=== PATIENT | female | born 1995 | race American Indian/Alaskan Native ===

== ENCOUNTER 2016-11-25 03:22 | Inpatient (IN) | payer MEDICAID, OTHER ==
[2016-11-25] MEDS ORDERED: Ondansetron 4 MG/2 ML SDV IV PRN (03:38)
[2016-11-25] MEDS ORDERED: Methylergonovine 0.2 MG/1 ML Amp IM PRN (03:38)
[2016-11-25] MEDS ORDERED: ceFAZolin 2 GM in Premix Bag 1 BAG IV ONE (03:38)
[2016-11-25] MEDS ORDERED: Citric Acid/Sodium Citrate Solution 30 ML Cup PO ONE (03:38)
[2016-11-25] MEDS ORDERED: Naloxone 2 MG/2 ML Syringe IVPUSH PRN (03:38)
[2016-11-25] MEDS ORDERED: Ibuprofen 800 MG Tab PO PRN (03:38)
[2016-11-25] MEDS ORDERED: Acetaminophen/oxyCODONE 325-5 MG Tab PO PRN (03:38)
[2016-11-25] MEDS ORDERED: Acetaminophen 325 MG Tab PO PRN (03:38)
[2016-11-25] MEDS ORDERED: Misoprostol 400 MCG (4 X 100 MCG TAB) RECTAL PRN (03:38)
[2016-11-25] MEDS ORDERED: ePHEDrine 50 MG/ML SDV IVPUSH PRN (03:38)
[2016-11-25] MEDS ORDERED: diphenhydrAMINE 50 MG/ML SDV IVPUSH PRN (03:38)
[2016-11-25] MEDS ORDERED: Carboprost Tromethamine 250 MCG/1 ML Amp IM ONE (03:38)
[2016-11-25] MEDS ORDERED: Oxytocin/Normal Saline 30 UNIT/500 ML BAG IV SCH (03:45)
[2016-11-25] MEDS: Lactated Ringers 1,000 ML IV SCH ×5 (04:09→23:30)
[2016-11-25] MEDS ORDERED: Oxytocin/Normal Saline 60 UNIT/1,000 ML BAG ONE (04:12)
[2016-11-25] MEDS ORDERED: Midazolam 1 MG/ML 2 ML SDV ONE (04:12)
[2016-11-25] MEDS: Ferrous Sulfate 325 MG Tab PO SCH ×2 (04:13→14:15)
[2016-11-25] MEDS ORDERED: Ondansetron 4 MG/2 ML SDV ONE (04:14)
[2016-11-25] MEDS ORDERED: ePHEDrine 50 MG/ML SDV ONE (04:14)
[2016-11-25] MEDS ORDERED: Morphine PF 5 MG/10 ML SDV ONE (04:14)
--- NOTE | 2016-11-25 04:21 | PCM.PREANE ---
Preanesthetic Assessment - Procedure Proposed Procedure: Term Labor scheduled for a repeat Section - Anesthesia/Transfusion/Family Hx Anesthesia History: Prior Anesthesia Without Reaction Family History of Anesthesia Reaction: No Transfusion History: No Prior Transfusion(s) Intubation History: Unknown - Review of Systems General: No Symptoms Pulmonary: No Symptoms Cardiovascular: No Symptoms Gastrointestinal: No symptoms Neurological: No Symptoms Other: Reports: None - Physical Assessment NPO Status Date: 11/24/16 NPO Status Time: 20:00 Pulse: 90 O2 Sat by Pulse Oximetry: 99 Respiratory Rate: 18 Blood Pressure: 119/66 Vital Signs: Last Vital Signs Temp 97.7 F 11/25/16 03:34 Pulse 83 11/25/16 03:34 Resp 18 11/25/16 03:34 BP 119/66 11/25/16 03:34 Pulse Ox 99 11/25/16 03:34 Height: 1.63 m Weight: 95.708 kg ASA Class: 2 Mental Status: Alert & Oriented x3 Airway Class: Mallampati = 2 Dentition: Reports: Normal Dentition Thyro-Mental Finger Breadths: 3 Mouth Opening Finger Breadths: 3 ROM/Head Extension: Full Lungs: Clear to auscultation, Normal respiratory effort Cardiovascular: Regular Rate, Regular Rhythm - Lab Values: Laboratory Last Values WBC 11.4 10^3/uL (5.0-10.0) H 11/25/16 03:55 RBC 3.29 10^6/uL (4.2-5.4) L 11/25/16 03:55 Hgb 9.0 g/dL (12.0-16.0) L 11/25/16 03:55 Hct 28.6 % (37.0-47.0) L 11/25/16 03:55 MCV 86.9 fL (80-100) 11/25/16 03:55 MCH 27.4 pg (27.0-34.0) 11/25/16 03:55 MCHC 31.5 g/dL (33.0-35.0) L 11/25/16 03:55 Plt Count 309 10^3/uL (150-450) 11/25/16 03:55 - Allergies Allergies/Adverse Reactions: Allergies Allergy/AdvReac Type Severity Reaction Status Date / Time No Known Allergies Allergy Verified 11/25/16 03:41 - Blood Blood Available: No Product(s) Available: None - Anesthesia Plan Pre-Op Medication Ordered: None - Acknowledgements Anesthesia Type Planned: Spinal Pt an Appropriate Candidate for the Planned Anesthesia: Yes Alternatives and Risks of Anesthesia Discussed w Pt/Guardian: Yes Pt/Guardian Understands and Agrees with Anesthesia Plan: Yes Additional Comments: Patient ID's chart reviewed. R/B of spinal vs general anesthesia is discussed and agreed to by patient consent is signed. Plan A is spinal and B is General. PreAnesthesia Questionnaire - Past Health History Medical/Surgical History: Denies Medical/Surgical History - SUBSTANCE USE Smoking Status *Q: Current Status Unknown Second Hand Smoke Exposure: Yes Days Per Week of Alcohol Use: 0 Recreational Drug Use History: No - HOME MEDS Home Medications: Home Meds Vit #108/Iron/FA [ One Tablet] 1 tab PO DAILY 01/25/14 [History ] Acetaminophen [Tylenol] 2 tab PO Q6H PRN 11/25/16 [History] Ferrous Sulfate [Iron] 1 tab PO DAILY 11/25/16 [History] - CURRENT (IN HOUSE) MEDS Current Meds: Current Medications Acetaminophen (Tylenol) 650 mg PO Q6H PRN PRN Reason: mild pain or fever Diphenhydramine HCl (Benadryl) 25 mg IVPUSH Q6H PRN PRN Reason: Itching or Nausea Docusate Sodium (Colace) 100 mg PO Q12H PRN PRN Reason: Constipation Ephedrine Sulfate (Ephedrine Sulfate) 5 mg IVPUSH SEECOMMENT PRN PRN Reason: Other Ferrous Sulfate (Ferrous Sulfate) 325 mg PO BRK [facility] Last Admin: 11/25/16 04:13 Dose: Not Given Oxytocin/Sodium Chloride (Pitocin In Ns 30 Unit/500 Ml) 30 unit in 500 mls @ 500 mls/hr IV TITRATE BLACK; 500 MUNITS/MIN PRN Reason: Protocol Lactated Ringer's (Ringers, Lactated) 1,000 mls @ 125 mls/hr IV ASDIRECTED [facility] Last Admin: 11/25/16 04:09 Dose: 125 mls/hr Ibuprofen (Motrin) 800 mg PO Q8H PRN PRN Reason: mild pain or fever Ketorolac Tromethamine (Toradol) 15 mg IVPUSH Q6H [facility] Stop: 11/25/16 15:46 Methylergonovine Maleate (Methergine) 0.2 mg IM ONETIME PRN PRN Reason: Excessive Vaginal Bleeding Misoprostol (Cytotec) 800 mcg RECTAL ASDIRECTED PRN PRN Reason: Bleeding Naloxone HCl (Narcan) 0.1 mg IVPUSH SEECOMMENT PRN PRN Reason: Respiratory Depression Ondansetron HCl (Zofran) 4 mg IV Q4H PRN PRN Reason: Nausea/Vomiting Oxycodone/Acetaminophen (Percocet 325-5 Mg) 1 tab PO Q4H PRN PRN Reason: Pain (moderate 4-6) Oxycodone/Acetaminophen (Percocet 325-5 Mg) 2 tab PO Q4H PRN PRN Reason: Pain (moderate 4-6) Prenat Multivit/Auto Machinist/Iron/Folic Ac ( Plus Iron) 1 each PO DAILY BLACK Simethicone (Simethicone) 80 mg PO Q4H PRN PRN Reason: Gas Discontinued Medications Carboprost Tromethamine (Hemabate Ds) 250 mcg IM ONETIME ONE Stop: 11/25/16 03:39 Citric Acid/Sodium Citrate (Bicitra Solution) 30 ml PO ONETIME ONE Stop: 11/25/16 03:39 Ephedrine Sulfate (Ephedrine Sulfate) Confirm Administered Dose 50 mg .ROUTE .STK-MED ONE Stop: 11/25/16 04:15 Cefazolin Sodium/Dextrose 2 gm (/ Premix) 50 mls @ 100 mls/hr IV ONETIME ONE Stop: 11/25/16 04:07 Oxytocin/Sodium Chloride (Pitocin In Ns 30 Unit/500 Ml) Confirm Administered Dose 60 unit in 1,000 mls @ as directed .ROUTE .STK-MED ONE Stop: 11/25/16 04:13 Midazolam HCl (Versed 1 Mg/Ml) Confirm Administered Dose 2 mg .ROUTE .STK-MED ONE Stop: 11/25/16 04:13 Morphine Sulfate (Duramorph Pf) Confirm Administered Dose 5 mg .ROUTE .STK-MED ONE Stop: 11/25/16 04:15 Ondansetron HCl (Zofran) Confirm Administered Dose 4 mg .ROUTE .STK-MED ONE Stop: 11/25/16 04:15
[2016-11-25] MEDS: Ketorolac 30 MG/ML SDV IVPUSH SCH ×4 (07:56→20:17)
[2016-11-25] MEDS ORDERED: Promethazine 25 MG/ML SDV IM ONE (08:45)
--- NOTE | 2016-11-25 09:24 | HP ---
PATIENT IDENTIFICATION: Priyanka Tapia is a 21-year-old, G2, P 1-0-0-1, intrauterine at 38 and 1/7th weeks confirmed with 20-5/7th-week ultrasound with previous , requests repeat low transverse who presents with contraction. HISTORY OF PRESENT ILLNESS: The patient states the contractions started around 11:00 p.m., night prior to evaluation, increasing frequency and intensity to the point that they are rated 5/10 on the pain scale, felt in the lower abdomen, radiating to the back, and she believes they are coming every 2 to 5 minutes. They are severe enough that she is unable to sleep through them or get to sleep. To put this in context, she was evaluated earlier in the clinic. She did describe having occasional contractions the night before, but none during that evaluation, was only found to be a finger tip, 25% ballotable presentation. She is GBS positive, rubella nonimmune, false-positive RPR noted, UTI in the with E. coli treated earlier and anemia of with hemoglobin 10.8 on 07/26/2016. Records were called for and reviewed as below and supplemented by patient history. OBSTETRICAL HISTORY: On 02/13/2014, 39-4/7th weeks, delivered via primary low transverse , female, weighing 3940 g. ALLERGIES: None. PAST MEDICAL/PAST SURGICAL HISTORY: Remarkable for wisdom teeth extraction and as above. MEDICATIONS: 1. vitamins. 2. Iron sulfate. FAMILY HISTORY: Diabetes in maternal grandmother, heart disease in father. Negative family history of bleeding problems, defects, or anesthesia problems. SOCIAL HISTORY: Graduated classes, spent 2 years in college at [employer]. Father of the baby live together, that is Peter Templeton, and he presents today. She denies any tobacco use, alcohol use, or drug use. Has some passive smoke exposure. ANTEPARTUM LABORATORY DATA: ABO blood type O positive. Negative antibody. Rubella nonimmune. RPR was reactive with negative trichomonal testing making this a biological false-positive RPR testing, she has had this in the past. Negative hepatitis B surface antigen. Negative hep C, HIV, GC, and Chlamydia. One-hour GTT was 144, with a three-hour test being 42, 109, and 110 respectively, and hemoglobin 10.8 on 07/26/2016. GBS was positive on 11/03/2016. REVIEW OF SYSTEMS: Otherwise reviewed and felt to be noncontributory. The patient denies any spotting or bleeding. Some minimal leaking/discharge. Otherwise, review of systems fully reviewed and felt to be noncontributory. OBJECTIVE: Vital Signs: Blood pressure is 119/66, heart rate is 83, temperature is 97.7, respiratory rate is between 12 and 16. Appearance: Female appears her stated age, breathing through her contractions, answering questions appropriately in between. HEENT: Head atraumatic. EOMs intact. PERRLA. No scleral icterus with glasses on. No obvious otorhinorrhea. Mucous membranes moist. Neck: No obvious tenderness. Lungs: Clear to auscultation bilaterally. No increased work of breathing. Heart: S1 and S2, regular rate and rhythm. Abdomen: Gravid, Santos's indeterminate, nontender, nondistended. Bowel sounds positive. No other organomegaly, pulsatile masses, or obvious hernias. No rebound, rigidity, or guarding. Monitors applied. : Normal external female genitalia. Normal position and presentation of urethra. Vaginal exam reveals to be 3 cm, 75% effaced, -1 station, vertex suspected, and bag of water felt. Extremities: Trace pedal edema. Deep tendon reflexes 2 to 3/4 bilaterally and symmetric in lower extremities. Psych: Mood and affect congruent. Judgment and insight intact. Skin: No cyanosis, clubbing, or jaundice. NST is found to be reactive and reassuring. Immediately upon admission, tocometer reveals contractions when reading, appears to be every 2 minutes apart during the 1st few of them. Pending is a CBC, type and screen. Of note, last liquid intake was approximately 3:00 a.m. and last solid food intake was [place] food at 8:00 p.m. night prior to evaluation. ASSESSMENT: 1. Intrauterine at 38 and /7th weeks confirmed with 20-10/02 week ultrasound. 2. Contractions with cervical change-labor. 3. Previous section x1, requests repeat low transverse section. 4. Anemia of with hemoglobin of 10.8 on 07/26/2016. CBC pending. 5. Impaired glucose tolerance. 6. Group B Streptococcus positive. 7. Rubella nonimmune. 8. False-positive RPR. 9. Urinary tract infection in the -treated, with E. coli. This was noted to be back in April of 2016. 10. 2, para 1-0-0-1. PLAN: Due to the patient's contractions with cervical change-labor and history of previous section, requests repeat low transverse , we will proceed with repeat low transverse . I did discuss with her and her male partner risks, benefits, alternatives, and complications of , including, but not limited to, infection, bleeding, damage to internal organs such as bowel, bladder, tubes, uterus, sometimes fetus; rarely needing a blood transfusion or further surgery and even rare maternal or . She understands and agrees and wished to proceed. Verbal and written consent were obtained. Questions were answered. We will proceed to the OR as soon as crew is ready and available. Please see orders for further details. We will give Ancef, Bicitra and do the above investigations in terms of labs. The patient understands and agrees with the above treatment plan. [facility] /[id number]
--- NOTE | 2016-11-25 09:57 | OR ---
DATE: 11/25/2016 PREOPERATIVE DIAGNOSES: 1. Intrauterine at 38-1/7th weeks confirmed with 20-5/7th-week ultrasound. 2. Contractions with cervical change-labor. 3. Previous x1, requests repeat low transverse . 4. Anemia of with hemoglobin of 9.0, upon admission. 5. Impaired glucose tolerance. 6. Group B Streptococcus positive. 7. Rubella nonimmune. 8. False-positive RPR. 9. Urinary tract infection in in April with Escherichia coli- treated. 10. 2, para 1-0-0-1. POSTOPERATIVE DIAGNOSES: 1. Intrauterine at 38-1/7th weeks confirmed with 20-5/7th-week ultrasound-delivered. 2. Contractions with cervical change-labor. 3. Previous x1, requests repeat low transverse . 4. Anemia of with hemoglobin of 9.0, upon admission. 5. Impaired glucose tolerance. 6. Group B Streptococcus positive. 7. Rubella nonimmune. 8. False-positive RPR. 9. Urinary tract infection in in April with Escherichia coli- treated. 10. 2, para 1-0-0-1. 11. hemorrhage with an EBL of 1000 mL. 12.Two adhesive bands from uterus to fascia lysed with cautery and then required [id number] stitches for hemostasis. 13.Difficulty delivering vertex, requiring Kiwi vacuum assistance. PROCEDURE PERFORMED: NST followed by repeat low transverse with Kiwi vacuum assistance due to difficulty delivering vertex. BILLET ASSEMBLER: Yenny Lopez MD. ANESTHESIA: Spinal. ESTIMATED BLOOD LOSS: 1000 mL. IV FLUIDS: 1500 mL. URINE OUTPUT: 450 mL and clear yellow. START: 0452 hours. UTERINE INCISION: 0458 hours. DELIVERY: 0459 hours. STOP: 0528 hours. FINDINGS: 1. Female, scores of 8 and 9, weighing 8 pounds 8 ounces with 2 adhesive bands noted on the uterus connecting the fascia, requiring lysis with cautery and then subsequent nirgga-[id number] stitch for hemostasis. 2. Difficulty delivering vertex, requiring Kiwi vacuum assistance. DESCRIPTION OF PROCEDURE IN DETAIL: After proper consent was obtained, the patient was brought to the operating room and spinal anesthetic administered. A Tai was placed in preop under sterile conditions. Abdomen was prepped and draped in normal sterile fashion with the patient placed in supine position with left lateral tilt. A skin incision was then made over lower abdomen in transverse Pfannenstiel-type fashion over previous scar. This was carried down the fascia and scored in the midline. Subcutaneous tissue was raked laterally with Kuo retractor. Fascial incision was extended in transverse fashion using curved French's. Regina clamps x2 were used to grasp the superior aspect of the fascia, and rectus and pyramidalis muscles were dissected from fascia using sharp and blunt technique. In the similar fashion, Regina clamps x2 were used to grasp the inferior portion of the incision, and rectus and pyramidalis muscles were dissected from fascia using sharp and blunt technique. Rectus muscles were then in the midline with blunt technique. Abdominal cavity was then entered in blunt technique, and incision was extended superiorly and inferiorly with blunt technique. There were 2 adhesive bands approximately less than a centimeter in greatest diameter that required electrocautery for access to the uterus. These were cauterized under direct visualization and during that time, hemostasis was reassured over both pedicles. Subsequently, Ben O large retractor was then introduced and used. Vesicouterine peritoneum was then identified, incised in transverse fashion using Metzenbaum scissors and bladder flap was made digitally. A curvilinear incision was made on lower uterine segment at 0458 hours. Uterus was entered sharply and uterine incision was extended in transverse fashion using blunt technique. Bulging bag of water was noted and ruptured with Allis clamps yielding copious amounts of clear fluid. vertex was attempted to be delivered through the incision with difficulty, Kiwi vacuum was called for, applied to the vertex, pumped up to the green with gentle pulling with fundal pressure, vertex was delivered followed by rest of the without difficulty. Vacuum was disengaged after vertex was delivered. Mouth and nares were suctioned on the patient's lap with vigorous cry. Cord was doubly clamped and cut and was brought over to the team. Then approximately, 10 mL of cord blood was obtained for labs. Placenta was then delivered with gentle cord traction and fundal massage. Uterine cavity was cleared of all blood clots and debris with lap sponge. Pa clamps were used to grasp the uterine incision. This was closed in a running locked fashion and tied at lateral margins with 1-0 Vicryl. Second imbricating layer was applied because of bleeding along the incision. This was tied at lateral margins with 1-0 Vicryl. There was some minimal bleeding left of midline, requiring 1 tqujmd-ts-asfkf stitch and hemostasis reassured over the uterine incision. There was noted to be some bleeding superior to this and further evaluation of the uterus revealed two less than 1 cm pedicles that were previously cauterized with bleeding. One sioclx-tz-yfvjj stitch for each one of these areas was applied. Electrocautery was then used and hemostasis was reassured. First inspection of the uterine incision revealed hemostasis, and Ben O retractor was then removed and paracolic gutters were cleared of all blood clots and debris with lap sponge. There was noted to be some minimal bleeding from where adhesion had been lysed on the fascial aspect and this was cauterized with electrocautery and hemostasis was reassured. Anterior cul-de-sac was then irrigated copiously and all blood clots and debris were removed. Second and final inspection of the uterine incision and anterior cul-de-sac revealed hemostasis. Review of both sides of the adhesions were evaluated and hemostasis was reassured. Rectus muscles were then reapproximated in midline with owbmxq-[id number] stitch using 1-0 Vicryl. Subfascial tissue was found to be hemostatic. Fascia was closed in a running fashion and tied at lateral margins with 0 looped PDS. Subcutaneous tissue was irrigated copiously. Hemostasis was reassured. Skin was reapproximated with medium antonio. Sterile Aquacel dressing applied. Uterine fundus was firm and massaged at the conclusion of the case, -1 below the umbilicus. No immediate complications were noted. Sponge, lap, and needle counts were correct. The patient received 2 g Ancef preoperatively, Pitocin per protocol, and will receive Toradol at the conclusion of the case for pain control. Mother and infant are currently stable at the time of dictation. We will do a CBC around noon due to her hemorrhage and anemia of with hemoglobin of 9, predelivery. Dr. Lopez will be covering in my absence and was assisting during this surgery, and she will continue to evaluate the patient and follow up with these labs. [facility] /[id number]
--- NOTE | 2016-11-25 10:45 | OBOUT ---
DATE: 11/25/2016 DATE AND TIME OF NST: Date: 11/25/2016. Time: 3:31 to 3:45. REASON FOR NST: 1. Intrauterine at 38-1/7 confirmed with 20-5/7th-week ultrasound. 2. Contractions with cervical change-labor. 3. Previous x1, requests for repeat low transverse . 4. Anemia of with hemoglobin of 10.8 on 07/26/2016. 5. Impaired glucose tolerance. 6. GBS positive. 7. Rubella nonimmune. 8. False-positive RPR. 9. UTI in the -treated with E. coli noted on culture. 10.G2, P1-0-0-1. NST INTERPRETATION: During this time period, heart tone baseline is approximately 125 to 135, and there are at least two 15 x 15 beat per minute accelerations, making this strip reactive. It is also noted to be reassuring. Tocometer reveals potential of 2 to 3 contractions, when tocometer is reading, felt by patient. ASSESSMENT: 1. Nonstress test-reactive and reassuring. 2. Tocometer with contractions. PLAN: As the patient is having contractions with cervical change and in active labor, we will proceed to the OR for repeat low transverse . Please see admit history and physical for further details. I did discuss with her and her male partner risks, benefits, alternatives, and complications of including, but not limited to infection, bleeding, damage to internal organs such as bowel, bladder, tubes, uterus, ovaries, sometimes fetus rarely needing a blood transfusion or further surgery, and even rarer maternal or . She understands and agrees and wishes to proceed. Verbal and written consent were obtained. Questions were answered. We will proceed as soon as OR crew is ready and available. [facility] /[id number]
[2016-11-25] MEDS: Prenatal Multivitamin with Calcium/Folic Acid/Iron Tab PO SCH (14:15)
[2016-11-25] MEDS ORDERED: Promethazine 25 MG/ML SDV IM PRN ×2 (14:30→14:56)
[2016-11-25] MEDS ORDERED: Oxytocin/Normal Saline 30 UNIT/500 ML BAG IV ONE (15:34)
[2016-11-25] MEDS ORDERED: Ketorolac 30 MG/ML SDV IVPUSH ONE (20:00)
[2016-11-25] MEDS: Docusate Sodium 100 MG Cap PO PRN (20:10)
[2016-11-25] MEDS: Simethicone 80 MG Tab.Chew PO PRN (20:10)
[2016-11-25] MEDS: Acetaminophen/oxyCODONE 325-5 MG Tab PO PRN (23:25)
[2016-11-26] MEDS: Acetaminophen/oxyCODONE 325-5 MG Tab PO PRN ×5 (04:36→21:24)
[2016-11-26] MEDS: Prenatal Multivitamin with Calcium/Folic Acid/Iron Tab PO SCH (08:36)
[2016-11-26] MEDS: Docusate Sodium 100 MG Cap PO PRN ×2 (08:36→19:40)
[2016-11-26] MEDS: Ferrous Sulfate 325 MG Tab PO SCH ×2 (08:37→17:09)
[2016-11-26] MEDS: Ibuprofen 800 MG Tab PO PRN ×2 (08:37→19:40)
[2016-11-26] MEDS: Simethicone 80 MG Tab.Chew PO PRN ×3 (08:39→19:39)
--- NOTE | 2016-11-26 08:58 | PCM.POSTAN ---
POST ANESTHESIA ASSESSMENT - MENTAL STATUS Mental Status: alert, oriented - VITAL SIGNS Pulse Rate: 73 SaO2: 100 Resp Rate: 16 Blood Pressure: 118/50 Temperature: 97.2 F - RESPIRATORY Respiratory Status: respiratory rate WNL, airway patent, O2 saturation stable - CARDIOVASCULAR CV Status: pulse rate WNL, blood pressure stable - GASTROINTESTINAL GI Status: no symptoms - PAIN Pain Score: 1 - POST OP HYDRATION Hydration Status: adequate & stable (regained full function of lower extremities. Nausea resolved with Phenergan. Had good night. Pleased with the anesthesia plan of care.)
--- NOTE | 2016-11-26 11:23 | PCM.PNPP ---
- General Info Date of Service: 11/26/16 Subjective Update: 21-year-old POD#1 status post repeat cesrean section at 38w1d. Patient is doing well. Pain in controlled. She is voiding normally. She is tolerating a general diet. She is voiding without difficulty. She passed some gas last night. No fever or chills. She is bottle feeding. Functional Status: Reports: pain controlled, tolerating diet, ambulating, urinating - Review of Systems General: Reports: No Symptoms HEENT: Reports: no symptoms Pulmonary: Reports: no symptoms Cardiovascular: Reports: No Symptoms Gastrointestinal: Reports: No symptoms Genitourinary: Reports: no symptoms Musculoskeletal: Reports: no symptoms - General Info Date of Service: 11/26/16 - Patient Data Vital Signs - most recent: Last Vital Signs Temp 36.2 C 11/26/16 08:57 Pulse 73 11/26/16 08:57 Resp 16 11/26/16 08:57 BP 118/50 L 11/26/16 08:57 Pulse Ox 100 11/26/16 08:57 Weight - most recent: 95.708 kg I&O - last 24 hours: Intake & Output 11/25/16 11/26/16 11/26/16 22:59 06:59 14:59 Intake Total 1650 900 560 Output Total 1050 1450 350 Balance 600 -550 210 Lab Results - last 24 hrs: Laboratory Results - last 24 hr 11/25/16 Range/Units 12:05 WBC 16.2 H (5.0-10.0) 10^3/uL RBC 3.17 L (4.2-5.4) 10^6/uL Hgb 8.7 L (12.0-16.0) g/dL Hct 27.6 L (37.0-47.0) % MCV 87.1 (80-100) fL MCH 27.4 (27.0-34.0) pg MCHC 31.5 L (33.0-35.0) g/dL Plt Count 299 (150-450) 10^3/uL Med Orders - Current: Current Medications Acetaminophen (Tylenol) 650 mg PO Q6H PRN PRN Reason: mild pain or fever Diphenhydramine HCl (Benadryl) 25 mg IVPUSH Q6H PRN PRN Reason: Itching or Nausea Last Admin: 11/25/16 23:23 Dose: 25 mg Docusate Sodium (Colace) 100 mg PO Q12H PRN PRN Reason: Constipation Last Admin: 11/26/16 08:36 Dose: 100 mg Ephedrine Sulfate (Ephedrine Sulfate) 5 mg IVPUSH SEECOMMENT PRN PRN Reason: Other Ferrous Sulfate (Ferrous Sulfate) 325 mg PO BRK BLACK Last Admin: 11/26/16 08:37 Dose: 325 mg Oxytocin/Sodium Chloride (Pitocin In Ns 30 Unit/500 Ml) 30 unit in 500 mls @ 500 mls/hr IV TITRATE BLACK; 500 MUNITS/MIN PRN Reason: Protocol Last Titration: 11/25/16 08:35 Dose: 0 mls/hr Lactated Ringer's (Ringers, Lactated) 1,000 mls @ 125 mls/hr IV ASDIRECTED BLACK Last Infusion: 11/26/16 05:20 Dose: 0 mls/hr Ibuprofen (Motrin) 800 mg PO Q8H PRN PRN Reason: mild pain or fever Last Admin: 11/26/16 08:37 Dose: 800 mg Methylergonovine Maleate (Methergine) 0.2 mg IM ONETIME PRN PRN Reason: Excessive Vaginal Bleeding Misoprostol (Cytotec) 800 mcg RECTAL ASDIRECTED PRN PRN Reason: Bleeding Naloxone HCl (Narcan) 0.1 mg IVPUSH SEECOMMENT PRN PRN Reason: Respiratory Depression Ondansetron HCl (Zofran) 4 mg IV Q4H PRN PRN Reason: Nausea/Vomiting Oxycodone/Acetaminophen (Percocet 325-5 Mg) 1 tab PO Q4H PRN PRN Reason: Pain (moderate 4-6) Oxycodone/Acetaminophen (Percocet 325-5 Mg) 2 tab PO Q4H PRN PRN Reason: Pain (moderate 4-6) Last Admin: 11/26/16 08:38 Dose: 2 tab Prenat Multivit/System Administration Advisor/Iron/Folic Ac ( Plus Iron) 1 each PO DAILY BLACK Last Admin: 11/26/16 08:36 Dose: 1 each Promethazine HCl (Phenergan) 12.5 mg IM Q6H PRN PRN Reason: Nausea/Vomiting Simethicone (Simethicone) 80 mg PO Q4H PRN PRN Reason: Gas Last Admin: 11/26/16 08:39 Dose: 80 mg Discontinued Medications Carboprost Tromethamine (Hemabate Ds) 250 mcg IM ONETIME ONE Stop: 11/25/16 03:39 Last Admin: 11/25/16 07:28 Dose: Not Given Citric Acid/Sodium Citrate (Bicitra Solution) 30 ml PO ONETIME ONE Stop: 11/25/16 03:39 Last Admin: 11/25/16 04:21 Dose: 30 ml Ephedrine Sulfate (Ephedrine Sulfate) Confirm Administered Dose 50 mg .ROUTE .STK-MED ONE Stop: 11/25/16 04:15 Cefazolin Sodium/Dextrose 2 gm (/ Premix) 50 mls @ 100 mls/hr IV ONETIME ONE Stop: 11/25/16 04:07 Last Admin: 11/25/16 04:38 Dose: 100 mls/hr Oxytocin/Sodium Chloride (Pitocin In Ns 30 Unit/500 Ml) Confirm Administered Dose 60 unit in 1,000 mls @ as directed .ROUTE .STK-MED ONE Stop: 11/25/16 04:13 Oxytocin/Sodium Chloride (Pitocin In Ns 30 Unit/500 Ml) 30 unit in 500 mls @ as directed IV .STK-MED ONE Stop: 11/25/16 15:35 Ibuprofen (Motrin) 800 mg PO Q8H PRN PRN Reason: mild pain or fever Ketorolac Tromethamine (Toradol) 15 mg IVPUSH Q6H BLACK Stop: 11/25/16 15:46 Last Admin: 11/25/16 20:17 Dose: Not Given Ketorolac Tromethamine (Toradol) 15 mg IVPUSH ONETIME ONE Stop: 11/25/16 20:01 Last Admin: 11/25/16 20:12 Dose: 15 mg Midazolam HCl (Versed 1 Mg/Ml) Confirm Administered Dose 2 mg .ROUTE .STK-MED ONE Stop: 11/25/16 04:13 Last Admin: 11/25/16 07:33 Dose: Not Given Morphine Sulfate (Duramorph Pf) Confirm Administered Dose 5 mg .ROUTE .STK-MED ONE Stop: 11/25/16 04:15 Ondansetron HCl (Zofran) Confirm Administered Dose 4 mg .ROUTE .STK-MED ONE Stop: 11/25/16 04:15 Promethazine HCl (Phenergan) 12.5 mg IM ONETIME ONE Stop: 11/25/16 08:46 Last Admin: 11/25/16 09:15 Dose: 12.5 mg Promethazine HCl (Phenergan) 12.5 mg IM Q2H PRN PRN Reason: Nausea/Vomiting - Interaction Infant Disposition, : in Room with Family Infant Interaction: Other (see below) (Significant other holding baby) Feeding: Bottle Fed Infant Support Person: Significant Other - Recovery Exam Fundal Tone: Firm Fundal Level: 1 Fingerbreadths Below Umbilicus Fundal Placement: Midline Lochia Amount: Small Lochia Color: Rubra/Red Perineum Description: Intact, Minimal Bruising/Swelling Episiotomy/Laceration: None Bladder Status: Voiding Urinary Elimination: Voided - Exam General: alert, oriented HEENT: Mucous membr. moist/pink Lungs: Clear to auscultation, Normal respiratory effort Cardiovascular: Regular Rate, Regular Rhythm, No Murmurs Extremities: no edema Skin: warm, dry, intact Wound/Incisions: dressing dry and intact - Problem List & Annotations (1) section SNOMED Code(s): 23745665 - section Status: Acute Current Visit: No - Problem List Review Problem List Initiated/Reviewed/Updated: Yes - Assessment Assessment:: 21-year-old POD#1 status post repeat cesrean section - Plan Plan:: 1. Continue routine postoperative cares 2. Bottle feeding. 3. Hemoglobin 8.7 from 9.0. Will start oral iron 4. Anticipate discharge 11/28/16 Yenny Lpoez MD
[2016-11-27] MEDS: Ibuprofen 800 MG Tab PO PRN (06:08)
[2016-11-27] MEDS: Acetaminophen/oxyCODONE 325-5 MG Tab PO PRN ×2 (06:08→12:10)
[2016-11-27] MEDS: Prenatal Multivitamin with Calcium/Folic Acid/Iron Tab PO SCH (08:45)
[2016-11-27] MEDS: Ferrous Sulfate 325 MG Tab PO SCH (08:45)
[2016-11-27] MEDS: Docusate Sodium 100 MG Cap PO PRN (08:46)
[2016-11-27] MEDS: Simethicone 80 MG Tab.Chew PO PRN (08:46)
[2016-11-27] MEDS ORDERED: Morphine PF 5 MG/10 ML SDV ONE (10:21)
[2016-11-27 10:50] VITALS: BP 130/70
--- NOTE | 2016-11-27 11:39 | PCM.DCSUM1 ---
Discharge Summary - Hospital Course Free Text/Narrative:: Repeat section on 11/25/16 at 38w1d - Discharge Data Discharge Date: 11/27/16 Discharge Disposition: Home, Self-Care 01 Condition: Good - Discharge Diagnosis/Problem(s) (1) section SNOMED Code(s): 02779662 - section Status: Acute Current Visit: No - Patient Summary/Data Operative Procedure(s) Performed: Repeat section Complications: None Consults: None Labs Pending at D/C: None Recommended Follow-up Testing/Procedures: None Planned Operative Procedure(s) after DC: None Hospital Course: Unremarkable. (please see Subjective Section for details) - Patient Instructions Diet: Usual Diet as Tolerated Activity: No Lifting Over 20 Pounds Driving: Do Not Drive (While taking pain medication) Showering/Bathing: May Shower Wound/Incision Care: Do NOT Change Dressing Notify Provider of: Fever, Increased Pain, Swelling and Redness, Drainage, Nausea and/or Vomiting - Discharge Plan Home Medications: Home Meds Vit #108/Iron/FA [ One Tablet] 1 tab PO DAILY 01/25/14 [History ] Acetaminophen [Tylenol] 650 mg PO Q6H PRN #0 tablet 11/27/16 [Rx] Docusate Sodium [Colace] 100 mg PO Q12H PRN #0 cap 11/27/16 [Rx] Ferrous Sulfate 325 mg PO BIDMEALS tablet 11/27/16 [Rx] Ibuprofen [IJD: Ibuprofen] 800 mg PO Q8H PRN #0 tablet 11/27/16 [Rx] Referrals: Yenny Lopez MD [Physician] - (12/01 at 2:15PM) - Discharge Summary/Plan Comment DC Time >30 min.: No Discharge Summary/Plan Comment: Discharge home today. Follow-up in 4 days. Reasons to return sooner were discussed with patient. She voices her understanding and all questions were answered. Yenny Lopez MD - General Info Date of Service: 11/27/16 Subjective Update: 21-year-old POD#2 status post repeat cesrean section at 38w1d. Patient is doing well. Pain in controlled. She is voiding normally. She is tolerating a general diet. She is voiding without difficulty. She is passing gas but has not had a bowel movement. No fever or chills. She is bottle feeding. Functional Status: Reports: pain controlled, tolerating diet, ambulating, urinating. Denies: new symptoms - Review of Systems General: Reports: No Symptoms HEENT: Reports: no symptoms Pulmonary: Reports: no symptoms Cardiovascular: Reports: No Symptoms Gastrointestinal: Reports: No symptoms Genitourinary: Reports: no symptoms Musculoskeletal: Reports: no symptoms Skin: Reports: no symptoms - Patient Data Vitals - Most Recent: Last Vital Signs Temp 36.3 C 11/27/16 09:10 Pulse 79 11/27/16 09:10 Resp 18 11/27/16 09:10 BP 130/70 11/27/16 09:10 Pulse Ox 97 11/27/16 09:10 Weight - Most Recent: 95.708 kg Lab Results - Last 24 hrs: Laboratory Results - last 24 hr 11/25/16 Range/Units 03:55 Blood Type O POSITIVE Gel Antibody Screen Positive Antibody Identification Cold Antibody Med Orders - Current: Current Medications Acetaminophen (Tylenol) 650 mg PO Q6H PRN PRN Reason: mild pain or fever Diphenhydramine HCl (Benadryl) 25 mg IVPUSH Q6H PRN PRN Reason: Itching or Nausea Last Admin: 11/25/16 23:23 Dose: 25 mg Docusate Sodium (Colace) 100 mg PO Q12H PRN PRN Reason: Constipation Last Admin: 11/27/16 08:46 Dose: 100 mg Ephedrine Sulfate (Ephedrine Sulfate) 5 mg IVPUSH SEECOMMENT PRN PRN Reason: Other Ferrous Sulfate (Ferrous Sulfate) 325 mg PO BIDMEALS BLACK Last Admin: 11/27/16 08:45 Dose: 325 mg Oxytocin/Sodium Chloride (Pitocin In Ns 30 Unit/500 Ml) 30 unit in 500 mls @ 500 mls/hr IV TITRATE BLACK; 500 MUNITS/MIN PRN Reason: Protocol Last Titration: 11/25/16 08:35 Dose: 0 mls/hr Lactated Ringer's (Ringers, Lactated) 1,000 mls @ 125 mls/hr IV ASDIRECTED BLACK Last Infusion: 11/26/16 05:20 Dose: 0 mls/hr Ibuprofen (Motrin) 800 mg PO Q8H PRN PRN Reason: mild pain or fever Last Admin: 11/27/16 06:08 Dose: 800 mg Methylergonovine Maleate (Methergine) 0.2 mg IM ONETIME PRN PRN Reason: Excessive Vaginal Bleeding Misoprostol (Cytotec) 800 mcg RECTAL ASDIRECTED PRN PRN Reason: Bleeding Naloxone HCl (Narcan) 0.1 mg IVPUSH SEECOMMENT PRN PRN Reason: Respiratory Depression Ondansetron HCl (Zofran) 4 mg IV Q4H PRN PRN Reason: Nausea/Vomiting Oxycodone/Acetaminophen (Percocet 325-5 Mg) 1 tab PO Q4H PRN PRN Reason: Pain (moderate 4-6) Oxycodone/Acetaminophen (Percocet 325-5 Mg) 2 tab PO Q4H PRN PRN Reason: Pain (moderate 4-6) Last Admin: 11/27/16 06:08 Dose: 2 tab Prenat Multivit/[place]/Iron/Folic Ac ( Plus Iron) 1 each PO DAILY [facility] Last Admin: 11/27/16 08:45 Dose: 1 each Promethazine HCl (Phenergan) 12.5 mg IM Q6H PRN PRN Reason: Nausea/Vomiting Simethicone (Simethicone) 80 mg PO Q4H PRN PRN Reason: Gas Last Admin: 11/27/16 08:46 Dose: 80 mg Discontinued Medications Carboprost Tromethamine (Hemabate Ds) 250 mcg IM ONETIME ONE Stop: 11/25/16 03:39 Last Admin: 11/25/16 07:28 Dose: Not Given Citric Acid/Sodium Citrate (Bicitra Solution) 30 ml PO ONETIME ONE Stop: 11/25/16 03:39 Last Admin: 11/25/16 04:21 Dose: 30 ml Ephedrine Sulfate (Ephedrine Sulfate) Confirm Administered Dose 50 mg .ROUTE .STK-MED ONE Stop: 11/25/16 04:15 Ferrous Sulfate (Ferrous Sulfate) 325 mg PO K [facility] Last Admin: 11/26/16 08:37 Dose: 325 mg Cefazolin Sodium/Dextrose 2 gm (/ Premix) 50 mls @ 100 mls/hr IV ONETIME ONE Stop: 11/25/16 04:07 Last Admin: 11/25/16 04:38 Dose: 100 mls/hr Oxytocin/Sodium Chloride (Pitocin In Ns 30 Unit/500 Ml) Confirm Administered Dose 60 unit in 1,000 mls @ as directed .ROUTE .STK-MED ONE Stop: 11/25/16 04:13 Oxytocin/Sodium Chloride (Pitocin In Ns 30 Unit/500 Ml) 30 unit in 500 mls @ as directed IV .STK-MED ONE Stop: 11/25/16 15:35 Ibuprofen (Motrin) 800 mg PO Q8H PRN PRN Reason: mild pain or fever Ketorolac Tromethamine (Toradol) 15 mg IVPUSH Q6H BLACK Stop: 11/25/16 15:46 Last Admin: 11/25/16 20:17 Dose: Not Given Ketorolac Tromethamine (Toradol) 15 mg IVPUSH ONETIME ONE Stop: 11/25/16 20:01 Last Admin: 11/25/16 20:12 Dose: 15 mg Midazolam HCl (Versed 1 Mg/Ml) Confirm Administered Dose 2 mg .ROUTE .STK-MED ONE Stop: 11/25/16 04:13 Last Admin: 11/25/16 07:33 Dose: Not Given Morphine Sulfate (Duramorph Pf) Confirm Administered Dose 5 mg .ROUTE .STK-MED ONE Stop: 11/25/16 04:15 Ondansetron HCl (Zofran) Confirm Administered Dose 4 mg .ROUTE .STK-MED ONE Stop: 11/25/16 04:15 Promethazine HCl (Phenergan) 12.5 mg IM ONETIME ONE Stop: 11/25/16 08:46 Last Admin: 11/25/16 09:15 Dose: 12.5 mg Promethazine HCl (Phenergan) 12.5 mg IM Q2H PRN PRN Reason: Nausea/Vomiting - Exam General: Reports: alert, oriented HEENT: Reports: Pupils equal, Mucous membr. moist/pink Lungs: Reports: Clear to auscultation, Normal respiratory effort Cardiovascular: Reports: Regular Rate, Regular Rhythm, No Murmurs Extremities: Reports: no edema Skin: Reports: warm, dry, intact Wound/Incisions: Reports: dressing dry and intact *Q Meaningful Use (DIS) - VTE *Q VTE Criteria *Q: - Stroke *Q Stroke Criteria *Q: - AMI *Q AMI Criteria *Q:
[2016-11-27] MEDS ORDERED: Measles, Mumps & Rubella Vaccine 0.5 ML SDV SUBCUT ONE (11:43)
[2016-11-27] MEDS ORDERED: ePHEDrine 50 MG/ML SDV IV ONE (14:07)
== END 2016-11-27 14:08 | disposition home or self-care (01) | DRG 766 ==
LOC: DL.OBCHECK 03:22 → DL.OB 03:48 → OBSVTOIN 04:59
PROVIDERS: ADMIT Family Medicine; ATTEND Family Medicine
PROC: 10D00Z1 Extraction of Products of Conception, Low, Open Approach (ICD-10-PCS; principal; 2016-11-25)
DX: O34.211 Maternal care for low transverse scar from previous cesarean delivery (principal); O99.02 Anemia complicating childbirth; Z3A.38 38 weeks gestation of pregnancy; Z37.0 Single live birth; Z22.330 Carrier of Group B streptococcus
CPT/HCPCS: 01961; 36415; 85027; 86850; 86870; 86900; 86901; 90707; A9270-GY; J0690; J1200; J1885; J2274; J2550; J2590; J7120

== ENCOUNTER 2018-08-30 18:54 | Emergency (ER) | payer MEDICAID, OTHER ==
--- NOTE | 2018-08-30 19:34 | EDM.PDOC ---
ED HPI GENERAL MEDICAL PROBLEM - General Chief Complaint: Abdominal Pain Stated Complaint: STOMACH PAINS Time Seen by Provider: 08/30/18 19:22 Source of Information: Reports: Patient History Limitations: Reports: No Limitations - History of Present Illness INITIAL COMMENTS - FREE TEXT/NARRATIVE: This 23 yo female patient reports to the ED with a 2 day history of intermittent right lower quadrant pain. The patient reports she has been having fevers and chills, but has not taken her temperature at home. The patient reports she is approximately 25 weeks into her current . The patient's OB checks have been done by Raine Reyes at the [facility]. The patient reports she has been drinking some prune juice due to constipation throughout her . The patient reports her last normal bowel movement was about 2 days ago. Onset Date: 08/28/18 Duration: Intermittent Location: Reports: Abdomen (RLQ) Quality: Reports: Ache, Dull Severity: Moderate Improves with: Reports: None Worsens with: Reports: None Context: Reports: Other Associated Symptoms: Reports: No Other Symptoms Right Lower Abdominal Pain Score (Numeric/FACES): 7 - Related Data Allergies Allergy/AdvReac Type Severity Reaction Status Date / Time No Known Allergies Allergy Verified 08/30/18 18:57 Home Meds: Home Meds Vit #108/Iron/FA [ One Tablet] 1 tab PO DAILY 01/25/14 [History ] Acetaminophen [Tylenol] 650 mg PO Q6H PRN #0 tablet 11/27/16 [Rx] Docusate Sodium [Colace] 100 mg PO Q12H PRN #0 cap 11/27/16 [Rx] Ferrous Sulfate 325 mg PO BIDMEALS tablet 11/27/16 [Rx] Ibuprofen [IJD: Ibuprofen] 800 mg PO Q8H PRN #0 tablet 11/27/16 [Rx] Past Medical History - Past Health History Medical/Surgical History: Denies Medical/Surgical History HEENT History: Reports: Impaired Vision, Other (See Below) Other HEENT History: wears glasses Genitourinary History: Reports: UTI, Recurrent [employer]ODUCT [employer]ER History: Reports: Psychiatric History: Reports: Other (See Below) Other Psychiatric History: scars from cutting, patient states she last cut at age 11 - Past Surgical History Female Surgical History: Reports: Section Social & Family History - Tobacco Use Smoking Status *Q: Never Smoker - Caffeine Use Caffeine Use: Reports: None - Recreational Drug Use Recreational Drug Use: No ED ROS GENERAL - Review of Systems Review Of Systems: ROS reveals no pertinent complaints other than HPI. ED EXAM, GI/ABD - Physical Exam Exam: See Below Exam Limited By: No Limitations General Appearance: Alert, WD/WN, Mild Distress Eyes: Bilateral: Normal Appearance, EOMI Ears: Normal External Exam, Normal Canal, Hearing Grossly Normal, Normal TMs Nose: Normal Inspection, Normal Mucosa, No Blood Throat/Mouth: Normal Inspection, Normal Lips, Normal Teeth, Normal Gums, Normal Oropharynx, Normal Voice, No Airway Compromise Head: Atraumatic, Normocephalic Neck: Normal Inspection, Supple, Non-Tender, Full Range of Motion Respiratory/Chest: No Respiratory Distress, Lungs Clear, Normal Breath Sounds, No Accessory Muscle Use, Chest Non-Tender Cardiovascular: Normal Peripheral Pulses, Regular Rate, Rhythm, No Edema, No Gallop, No JVD, No Murmur, No Rub GI/Abdominal Exam: Normal Bowel Sounds, Soft, No Organomegaly, No Distention, No Abnormal Bruit, No Mass, Pelvis Stable, Tender (RLQ), Other ( heartrate taken by nursing staff was 155-160 bpm) (Female) Exam: Deferred Rectal (Female) Exam: Deferred Back Exam: Normal Inspection, Full Range of Motion, NT Extremities: Normal Inspection, Normal Range of Motion, Non-Tender, Normal Capillary Refill, No Pedal Edema Neurological: Alert, Oriented, CN II-XII Intact, Normal Cognition, Normal Gait, Normal Reflexes, No Motor/Sensory Deficits Psychiatric: Normal Affect, Normal Mood Skin Exam: Warm, Dry, Intact, Normal Color, No Rash Lymphatic: No Adenopathy Course - Vital Signs Last Recorded V/S: Last Vital Signs Temp 37.2 C 08/30/18 18:57 Pulse 102 H 08/30/18 18:57 Resp 18 08/30/18 18:57 BP 120/72 08/30/18 18:57 Pulse Ox 100 08/30/18 18:57 - Orders/Labs/Meds Orders: Active Orders 24 hr Category Date Time Status CULTURE URINE [RM] Stat Lab 08/30/18 19:08 Received Labs: Laboratory Tests 08/30/18 08/30/18 08/30/18 Range/Units 19:08 19:08 19:30 WBC 22.5 H (5.0-10.0) 10^3/uL RBC 3.92 L (4.2-5.4) 10^6/uL Hgb 11.7 L D (12.0-16.0) g/dL Hct 35.1 L (37.0-47.0) % MCV 89.5 (80-100) fL MCH 29.8 (27.0-34.0) pg MCHC 33.3 (33.0-35.0) g/dL Plt Count 326 (150-450) 10^3/uL Neut % (Auto) 79.2 H (42.2-75.2) % Lymph % (Auto) 10.7 L (20.5-50.1) % [place] % (Auto) 9.0 H (2-8) % Eos % (Auto) 1.0 (1.0-3.0) % Baso % (Auto) 0.1 (0.0-1.0) % Add Manual Diff Yes Neutrophils % (Manual) 59 (42-75) % Band Neutrophils % 19 % Lymphocytes % (Manual) 10 L (20-50) % Atypical Lymphs % 0 % Monocytes % (Manual) 9 H (2-8) % Eosinophils % (Manual) 2 (1-3) % Basophils % (Manual) 1 Sodium (135-145) mmol/L Potassium (3.6-5.0) mmol/L Chloride (101-111) mmol/L Carbon Dioxide (21.0-31.0) mmol/L Anion Gap BUN (7-18) mg/dL Creatinine (0.6-1.3) mg/dL Est Cr Clr Drug Dosing mL/min Estimated GFR (MDRD) BUN/Creatinine Ratio Glucose (74-105) mg/dL Lactic Acid (0.5-2.2) mmol/L Calcium (8.4-10.2) mg/dl Total Bilirubin (0.2-1.0) mg/dL AST (10-42) IU/L ALT (10-60) IU/L Alkaline Phosphatase (42-121) IU/L Total Protein (6.7-8.2) g/dl Albumin (3.2-5.5) g/dl Globulin Albumin/Globulin Ratio HCG, Quant (0-25) mIU/ml Beta HCG, Quant mIU/ml Urine Color Yellow (YELLOW) Urine Appearance Slightly cloudy (CLEAR) Urine pH 6.0 (5.0-9.0) Ur Specific [place] 1.010 (1.005-1.030) Urine Protein Negative (NEGATIVE) Urine Glucose (UA) Negative (NEGATIVE) Urine Ketones Negative (NEGATIVE) Urine Occult Blood Negative (NEGATIVE) Urine Nitrite Negative (NEGATIVE) Urine Bilirubin Negative (NEGATIVE) Urine Urobilinogen 0.2 (0.2-1.0) mg/dL Ur Leukocyte Esterase Moderate H (NEGATIVE) Urine RBC Not seen /HPF Urine WBC 20-30 H (0-5/HPF) /HPF Ur Epithelial Cells Many H /HPF Urine Bacteria Many H (0-FEW/HPF) /HPF Urine Yeast Moderate H (0/HPF) /HPF Urine Opiates Screen Negative (NEGATIVE) Ur Oxycodone Screen Negative (NEGATIVE) Urine Methadone Screen Negative (NEGATIVE) Ur Barbiturates Screen Negative (NEGATIVE) U Tricyclic Antidepress Negative (NEGATIVE) Ur Phencyclidine Scrn Negative (NEGATIVE) Ur Amphetamine Screen Negative (NEGATIVE) U Methamphetamines Scrn Negative (NEGATIVE) Urine MDMA Screen Negative (NEGATIVE) U Benzodiazepines Scrn Negative (NEGATIVE) Urine Cocaine Screen Negative (NEGATIVE) U Marijuana (THC) Screen Negative (NEGATIVE) 08/30/18 08/30/18 08/30/18 Range/Units 19:30 19:30 19:30 WBC (5.0-10.0) 10^3/uL RBC (4.2-5.4) 10^6/uL Hgb (12.0-16.0) g/dL Hct (37.0-47.0) % MCV (80-100) fL MCH (27.0-34.0) pg MCHC (33.0-35.0) g/dL Plt Count (150-450) 10^3/uL Neut % (Auto) (42.2-75.2) % Lymph % (Auto) (20.5-50.1) % [place] % (Auto) (2-8) % Eos % (Auto) (1.0-3.0) % Baso % (Auto) (0.0-1.0) % Add Manual Diff Neutrophils % (Manual) (42-75) % Band Neutrophils % % Lymphocytes % (Manual) (20-50) % Atypical Lymphs % % Monocytes % (Manual) (2-8) % Eosinophils % (Manual) (1-3) % Basophils % (Manual) Sodium 130 L (135-145) mmol/L Potassium 3.8 (3.6-5.0) mmol/L Chloride 98 L (101-111) mmol/L Carbon Dioxide 19.0 L (21.0-31.0) mmol/L Anion Gap 16.8 BUN < 5 L (7-18) mg/dL Creatinine 0.3 L (0.6-1.3) mg/dL Est Cr Clr Drug Dosing 278.77 mL/min Estimated GFR (MDRD) > 60 BUN/Creatinine Ratio 16.66 Glucose 94 (74-105) mg/dL Lactic Acid 0.8 (0.5-2.2) mmol/L Calcium 8.8 (8.4-10.2) mg/dl Total Bilirubin 1.2 H (0.2-1.0) mg/dL AST 15 (10-42) IU/L ALT 12 (10-60) IU/L Alkaline Phosphatase 82 (42-121) IU/L Total Protein 7.4 (6.7-8.2) g/dl Albumin 3.3 (3.2-5.5) g/dl Globulin 4.1 Albumin/Globulin Ratio 0.80 HCG, Quant > 1359 H (0-25) mIU/ml Beta HCG, Quant 52622 mIU/ml Urine Color (YELLOW) Urine Appearance (CLEAR) Urine pH (5.0-9.0) Ur Specific [place] (1.005-1.030) Urine Protein (NEGATIVE) Urine Glucose (UA) (NEGATIVE) Urine Ketones (NEGATIVE) Urine Occult Blood (NEGATIVE) Urine Nitrite (NEGATIVE) Urine Bilirubin (NEGATIVE) Urine Urobilinogen (0.2-1.0) mg/dL Ur Leukocyte Esterase (NEGATIVE) Urine RBC /HPF Urine WBC (0-5/HPF) /HPF Ur Epithelial Cells /HPF Urine Bacteria (0-FEW/HPF) /HPF Urine Yeast (0/HPF) /HPF Urine Opiates Screen (NEGATIVE) Ur Oxycodone Screen (NEGATIVE) Urine Methadone Screen (NEGATIVE) Ur Barbiturates Screen (NEGATIVE) U Tricyclic Antidepress (NEGATIVE) Ur Phencyclidine Scrn (NEGATIVE) Ur Amphetamine Screen (NEGATIVE) U Methamphetamines Scrn (NEGATIVE) Urine MDMA Screen (NEGATIVE) U Benzodiazepines Scrn (NEGATIVE) Urine Cocaine Screen (NEGATIVE) U Marijuana (THC) Screen (NEGATIVE) - Re-Assessments/Exams Free Text/Narrative Re-Assessment/Exam: 08/30/18 20:[address] Herrera regarding the patient's symptoms. Dr. Herrera advised to have the patient transported to [facility] in [place] for continued evaluation and treatment. Departure - Departure Time of Disposition: 20:23 Disposition: DC/Tfer to Acute Hospital 02 Condition: Fair Clinical Impression: RLQ abdominal pain Qualifiers: Weeks of gestation: 25 weeks Qualified Code(s): Z3A.25 - 25 weeks gestation of Leukocytosis Qualifiers: Leukocytosis type: bandemia Qualified Code(s): D72.825 - Bandemia - Discharge Information *PRESCRIPTION DRUG MONITORING PROGRAM REVIEWED*: Not Applicable *COPY OF PRESCRIPTION DRUG MONITORING REPORT IN PATIENT JUNI: Not Applicable Forms: ED Department Discharge Care Plan Goals: Discussed the examination, history and lab results with Dr. Edge ([facility] ED ). Dr. Edge accepted the patient for continued evaluation and management. The patient will be transported by [facility]. - My Orders Last 24 Hours: My Active Orders 08/30/18 19:08 CULTURE URINE [RM] Stat - Assessment/Plan Last 24 Hours: My Active Orders 08/30/18 19:08 CULTURE URINE [RM] Stat
[2018-08-30 19:53] LABS: ANION GAP 16.8; CHLORIDE,CL 98 mmol/L (101-111); SODIUM,NA 130 mmol/L (135-145)
[2018-08-30 20:23] VITALS: BP 126/65
== END 2018-08-30 21:11 ==
LOC: DL.ED 18:54
DX: O99.89 Other specified diseases and conditions complicating pregnancy, childbirth and the puerperium (principal); R10.31 Right lower quadrant pain; O99.282 Endocrine, nutritional and metabolic diseases complicating pregnancy, second trimester; D72.825 Bandemia; Z3A.25 25 weeks gestation of pregnancy
CPT/HCPCS: 36415; 80053; 80305-QW; 81001; 83605; 84702; 85025; 87086; 99284

== ENCOUNTER 2019-12-01 20:09 | Emergency (ER) | payer MEDICAID ==
[2019-12-01] MEDS ORDERED: Ondansetron 4 MG/2 ML SDV IVPUSH ONE (21:10)
[2019-12-01] MEDS ORDERED: Famotidine 20 MG/2 ML SDV IVPUSH ONE (21:10)
[2019-12-01] MEDS ORDERED: Sodium Chloride 0.9% 1,000 ML IV ONE ×2 (21:10→22:52)
[2019-12-01 21:16] LABS: ANION GAP 10.3 mEq/L (7-13); CHLORIDE,CL 105 mmol/L (98-107); SODIUM,NA 143 mmol/L (136-145)
[2019-12-01] MEDS ORDERED: Iopamidol 612 MG/ML 100 ML Bottle IVPUSH ONE (21:22)
--- NOTE | 2019-12-01 21:22 | EDM.PDOC ---
ED HPI GENERAL MEDICAL PROBLEM - General Chief Complaint: Gastrointestinal Problem Stated Complaint: STOMACH PAIN Time Seen by Provider: 12/01/19 20:40 Source of Information: Reports: Patient History Limitations: Reports: No Limitations - History of Present Illness INITIAL COMMENTS - FREE TEXT/NARRATIVE: ED with c/o upper abdominal pain epigastric radinting bilaterally across. States started this am. Has had similar but not as severe in past. States constipated and took mag citrate yesterday with good results. Chills no fever, some nausea and cramping this am. Denies ETOH hx. Denies drug use. No cough No urinary symptoms. Denies pain lower abdomen. No prior surgeries. No prior hx of GB problems. Epigastric Pain Score (Numeric/FACES): 4 - Related Data Allergies Allergy/AdvReac Type Severity Reaction Status Date / Time No Known Allergies Allergy Verified 12/01/19 20:59 Home Meds: Home Meds . 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 History: 26 1/7 weeks at this time Psychiatric History: Reports: Other (See Below) Other Psychiatric History: scars from cutting, patient states she last cut at age 11 - Past Surgical History GI Surgical History: Reports: Appendectomy, Other (See Below) Other GI Surgeries/Procedures: in [place] on 08/31/2018 Female Surgical History: Reports: Section, Other (See Below) Other Female Surgeries/Procedures: x2 Social & Family History - Family History Family Medical History: Noncontributory - Tobacco Use Smoking Status *Q: Current Some Day Smoker Years of Tobacco use: 5 Packs/Tins Daily: 0.2 Second Hand Smoke Exposure: No - Caffeine Use Caffeine Use: Reports: Soda - Recreational Drug Use Recreational Drug Use: No ED ROS GENERAL - Review of Systems Review Of Systems: Comprehensive ROS is negative, except as noted in HPI. ED EXAM, GI/ABD - Physical Exam Exam: See Below Exam Limited By: No Limitations General Appearance: Alert, Moderate Distress Eyes: Bilateral: EOMI (No jaundice ) Ears: Normal External Exam Nose: Normal Inspection Throat/Mouth: Normal Inspection Head: Atraumatic, Normocephalic Neck: Normal Inspection Respiratory/Chest: No Respiratory Distress, Lungs Clear, Normal Breath Sounds Cardiovascular: Normal Peripheral Pulses, Regular Rate, Rhythm GI/Abdominal Exam: Normal Bowel Sounds, Soft, Tender (upper mid epigastric upper right and left). No: Distended, Guarding Extremities: Normal Inspection Neurological: Alert, Oriented, Normal Cognition, Normal Gait, Normal Reflexes Psychiatric: Normal Affect, Normal Mood Skin Exam: Warm, Dry, Intact, Pallor Course - Vital Signs Last Recorded V/S: Last Vital Signs Temp 98.8 F 12/02/19 00:23 Pulse 84 12/02/19 00:23 Resp 16 12/02/19 00:23 BP 125/72 12/02/19 00:23 Pulse Ox 99 12/02/19 00:23 - Orders/Labs/Meds Labs: Laboratory Tests 12/01/19 12/01/19 12/01/19 Range/Units 20:35 20:35 20:45 WBC 13.0 H (5.0-10.0) 10^3/uL RBC 4.61 (4.2-5.4) 10^6/uL Hgb 12.7 (12.0-16.0) g/dL Hct 40.1 (37.0-47.0) % MCV 87.0 (80-100) fL MCH 27.5 (27.0-34.0) pg MCHC 31.7 L (33.0-35.0) g/dL Plt Count 375 D (150-450) 10^3/uL Neut % (Auto) 85.7 H (42.2-75.2) % Lymph % (Auto) 8.0 L (20.5-50.1) % [place] % (Auto) 5.6 (2-8) % Eos % (Auto) 0.5 L (1.0-3.0) % Baso % (Auto) 0.2 (0.0-1.0) % PT (9.0-12.0) SEC INR (0.9-1.2) Sodium (136-145) mmol/L Potassium (3.5-5.1) mmol/L Chloride (98-107) mmol/L Carbon Dioxide (21-32) mmol/L Anion Gap (7-13) mEq/L BUN (7-18) mg/dL Creatinine (0.55-1.02) mg/dL Est Cr Clr Drug Dosing mL/min Estimated GFR (MDRD) BUN/Creatinine Ratio (No establ ref range) Glucose (74-99) mg/dL Calcium (8.5-10.1) mg/dL Total Bilirubin (0.2-1.0) mg/dL AST (15-37) U/L ALT (14-59) U/L Alkaline Phosphatase (46-116) U/L Total Protein (6.4-8.2) g/dL Albumin (3.4-5.0) g/dL Globulin Albumin/Globulin Ratio Amylase (25-115) U/L Lipase (73-393) U/L Urine Color Yellow (YELLOW) Urine Appearance Clear (CLEAR) Urine pH 8.5 (5.0-9.0) Ur Specific [place] 1.020 (1.005-1.030) Urine Protein Negative (NEGATIVE) Urine Glucose (UA) Negative (NEGATIVE) Urine Ketones Negative (NEGATIVE) Urine Occult Blood Negative (NEGATIVE) Urine Nitrite Negative (NEGATIVE) Urine Bilirubin Small H (NEGATIVE) Urine Urobilinogen 0.2 (0.2-1.0) mg/dL Ur Leukocyte Esterase Negative (NEGATIVE) Urine HCG, Qual Negative 12/01/19 12/01/19 12/01/19 Range/Units 20:45 20:45 20:45 WBC (5.0-10.0) 10^3/uL RBC (4.2-5.4) 10^6/uL Hgb (12.0-16.0) g/dL Hct (37.0-47.0) % MCV (80-100) fL MCH (27.0-34.0) pg MCHC (33.0-35.0) g/dL Plt Count (150-450) 10^3/uL Neut % (Auto) (42.2-75.2) % Lymph % (Auto) (20.5-50.1) % [place] % (Auto) (2-8) % Eos % (Auto) (1.0-3.0) % Baso % (Auto) (0.0-1.0) % PT 9.9 (9.0-12.0) SEC INR 1.0 (0.9-1.2) Sodium 143 (136-145) mmol/L Potassium 3.3 L (3.5-5.1) mmol/L Chloride 105 (98-107) mmol/L Carbon Dioxide 31 (21-32) mmol/L Anion Gap 10.3 (7-13) mEq/L BUN 7 (7-18) mg/dL Creatinine 0.78 (0.55-1.02) mg/dL Est Cr Clr Drug Dosing 106.29 mL/min Estimated GFR (MDRD) > 60 BUN/Creatinine Ratio 9.0 (No establ ref range) Glucose 101 H (74-99) mg/dL Calcium 9.0 (8.5-10.1) mg/dL Total Bilirubin 5.0 H (0.2-1.0) mg/dL AST 227 H (15-37) U/L ALT 205 H (14-59) U/L Alkaline Phosphatase 99 (46-116) U/L Total Protein 7.7 (6.4-8.2) g/dL Albumin 4.0 (3.4-5.0) g/dL Globulin 3.7 Albumin/Globulin Ratio 1.08 Amylase 3551 H (25-115) U/L Lipase 25760 H (73-393) U/L Urine Color (YELLOW) Urine Appearance (CLEAR) Urine pH (5.0-9.0) Ur Specific [place] (1.005-1.030) Urine Protein (NEGATIVE) Urine Glucose (UA) (NEGATIVE) Urine Ketones (NEGATIVE) Urine Occult Blood (NEGATIVE) Urine Nitrite (NEGATIVE) Urine Bilirubin (NEGATIVE) Urine Urobilinogen (0.2-1.0) mg/dL Ur Leukocyte Esterase (NEGATIVE) Urine HCG, Qual Meds: Medications Discontinued Medications Generic Name Dose Route Start Last Admin Trade Name Freq PRN Reason Stop Dose Admin Famotidine 20 mg 12/01/19 21:10 12/01/19 21:22 Pepcid IVPUSH 12/01/19 21:11 20 mg ONETIME ONE Administration Fentanyl 50 mcg 12/01/19 22:53 12/01/19 22:57 Sublimaze IVPUSH 12/01/19 22:54 50 mcg ONETIME ONE Administration Sodium Chloride 1,000 mls @ 999 mls/hr 12/01/19 21:10 12/01/19 21:22 Normal Saline IV 12/01/19 22:10 999 mls/hr .BOLUS ONE Administration Sodium Chloride 1,000 mls @ 200 mls/hr 12/01/19 22:52 12/01/19 22:59 Normal Saline IV 12/02/19 03:51 200 mls/hr .BOLUS ONE Administration Iopamidol 100 ml 12/01/19 21:22 12/01/19 21:31 Isovue-300 (61%) IVPUSH 12/01/19 21:23 100 ml ONETIME ONE Administration Ondansetron HCl 4 mg 12/01/19 21:10 12/01/19 21:22 Zofran IVPUSH 12/01/19 21:11 4 mg ONETIME ONE Administration - Re-Assessments/Exams Free Text/Narrative Re-Assessment/Exam: 12/02/19 05:[address] Shara Londono. Tx via [employer] ground . nausea improved with zofran Fentanyl for pain. Departure - Departure Time of Disposition: 00:45 Disposition: DC/Tfer to Acute Hospital 02 Condition: Fair, Undetermined Clinical Impression: Pancreatitis, Elevated LFTs, Hyperbilirubinemia, Abnormal CT of the abdomen - Discharge Information *PRESCRIPTION DRUG MONITORING PROGRAM REVIEWED*: No *COPY OF PRESCRIPTION DRUG MONITORING REPORT IN PATIENT JUNI: No Forms: ED Department Discharge Sepsis Event Note (ED) - Evaluation Sepsis Screening Result: No Definite Risk - Focused Exam Vital Signs: Vital Signs Temp Pulse Resp BP Pulse Ox 12/02/19 00:23 98.8 F 84 16 125/72 99 12/01/19 23:48 98.7 F 99 16 123/70 100 12/01/19 20:25 97.9 F 59 L 18 131/77 100
--- NOTE | 2019-12-01 22:10 | CT ---
PROCEDURE INFORMATION: Exam: CT Abdomen And Pelvis With Contrast Exam date and time: 12/01/2019 9:52 PM Age: 24 years old Clinical indication: Other: Pain; Additional info: Abdominal pain vomiting wbc 13 TECHNIQUE: Imaging protocol: Computed tomography of the abdomen and pelvis with intravenous contrast. Radiation optimization: All CT scans at this facility use at least one of these dose optimization techniques: automated exposure control; mA and/or kV adjustment per patient size (includes targeted exams where dose is matched to clinical indication); or iterative reconstruction. Contrast material: [id number]; Contrast volume: 100 ml; Contrast route: INTRAVENOUS (IV); COMPARISON: No relevant prior studies available. FINDINGS: Lungs: No lung base abnormality noted. Liver: There is an abnormal area of reduced CT density noted in the posterior aspect of the right lobe of the liver, etiology uncertain. This abnormality in the liver measures approximately 2.8 x 7.2 cm in size. There is a 2nd similar mass noted at the juncture of the left and right lobes of the liver, measuring approximately 2.9 cm diameter. Additional abnormalities are suggested in the medial aspect of the right lobe of the liver. These multiple liver abnormalities were may represent metastatic disease. Further workup is advised. Gallbladder and bile ducts: There is mild dilatation of intra and extrahepatic bile ducts. Pancreas: Diffuse inflammation is noted all around the head, body and tail portions of the pancreas, extending into surrounding areas of retroperitoneal and omental and mesenteric fat. Findings are consistent with acute pancreatitis. Spleen: Normal. No splenomegaly. Adrenals: Normal. No mass. Kidneys and ureters: Normal. No hydronephrosis. Stomach and bowel: Unremarkable. No obstruction. No mucosal thickening. Appendix: No evidence of appendicitis. Intraperitoneal space: Unremarkable. No free air. No significant fluid collection. Vasculature: Unremarkable. No abdominal aortic aneurysm. Lymph nodes: Unremarkable. No enlarged lymph nodes. Bladder: Unremarkable as visualized. Reproductive: Unremarkable as visualized. Bones/joints: Unremarkable. No acute fracture. Soft tissues: Unremarkable. Other findings: No focal fluid collections or pseudocyst noted. Cannot exclude cholangitis as a possible source of fever. IMPRESSION: 1. There is mild dilatation of intra and extrahepatic bile ducts. 2. Diffuse inflammation is noted all around the head, body and tail portions of the pancreas, extending into surrounding areas of retroperitoneal and omental and mesenteric fat. 3. Findings are consistent with acute pancreatitis. Any elevation of pancreatic enzymes? 4. No focal fluid collections or pseudocyst noted. 5. Multiple poorly defined liver masses or other abnormalities are noted as detailed above. Cannot exclude metastatic disease. Further workup is advised. 6. Cannot exclude cholangitis as a possible source of fever.
[2019-12-01] MEDS ORDERED: fentaNYL 100 MCG/2 ML SDV IVPUSH ONE (22:53)
[2019-12-02 00:24] VITALS: BP 125/72; PULSE 84
== END 2019-12-02 00:42 ==
LOC: DL.ED 20:09
DX: K85.90 Acute pancreatitis without necrosis or infection, unspecified (principal); E80.6 Other disorders of bilirubin metabolism; R93.5 Abnormal findings on diagnostic imaging of other abdominal regions, including retroperitoneum; R79.89 Other specified abnormal findings of blood chemistry; F17.210 Nicotine dependence, cigarettes, uncomplicated
CPT/HCPCS: 36415; 74177; 80053; 81003; 81025; 82150; 83690; 85025; 85610; 96361; 96374; 96375; 99285; J2405; J3010; J3490; J7030; Q9967